=== PATIENT | female | born 2000 | race Caucasian/White ===

== ENCOUNTER 2022-05-29 16:09 | Emergency (ER) | payer OTHER ==
[2022-05-29 17:10] LABS: ALT (SGPT) 11 U/L (8-55); AST (SGOT) 15 U/L (5-30); Albumin 4.7 g/dL (3.5-5.0); Alkaline Phosphatase 58 U/L (40-100); Anion Gap 12 mmol/L (10-20); BUN (Urea Nitrogen) 11 mg/dL (8.4-21.0); Bilirubin, Total 0.5 mg/dL (0.2-1.2); Calc. Creatinine Clearance 0 mL/min (70-130); Calcium 9.6 mg/dL (7.8-10.44); Carbon Dioxide 25 mmol/L (22-29); Chloride 105 mmol/L (98-107); Estimated GFR 106; Globulin 2.6 g/dL (2.4-3.5); Glucose 115 mg/dL (70-105); Potassium 3.6 mmol/L (3.5-5.1); Protein, Total 7.3 g/dL (6.0-8.3); Sodium 138 mmol/L (136-145)
[2022-05-29] MEDS ORDERED: Acetaminophen 500 MG TAB ONE (17:30)
[2022-05-29 17:34] LABS: #Monocytes 0.6 10x3/uL (0.0-1.1); #Neutrophils 3.7 10x3/uL (1.5-8.4); %Basophils 0.4 % (0.0-2.0); %Eosinophils 0.2 % (0.0-6.0); %Lymphocytes 15.4 % (18.0-47.0); %Monocytes 11.9 % (0.0-10.0); %Neutrophils 71.7 % (40.0-75.0); Hemoglobin 13.5 g/dL (12.0-15.5); Mean Corpuscular HGB CONC 32.9 g/dL (32.0-36.0); Mean Corpuscular Hemoglobin 29.5 pg (27.0-33.0); Mean Corpuscular Volume 89.5 fl (81.6-98.3); Mean Platelet Volume 10.9 fl (7.4-10.4); Platelet Count 157 10x3/uL (150-450); RBC Distribution Width 12.8 % (11.5-14.5); Red Blood Cell (RBC) Count 4.58 10x6/uL (3.90-5.03); White Blood Cell (WBC) Count 5.2 10x3/uL (3.5-10.5)
[2022-05-29 18:11] LABS: Bilirubin Neg (Negative); Blood, Urine 150 (Negative); Clarity Clear (Clear); Glucose, Urine (Dipstick) Normal (Negative); Ketone, Urine Negative (Negative); Leukocyte Negative (Negative); Nitrite Negative (Negative); Protein, Urine (Dipstick) 15 mg/dl (Neg-Trace); Urobilinogen Normal mg/dL (Less than 2)
[2022-05-29 18:15] LABS: Pregnancy Test - Urine (BHCG) Negative (Negative); Pregu Control Background? CLEAR/WHITE (CLR/WHITE); Pregu Control Bar Appear? YES (CONTROL BAR)
[2022-05-29 18:30] LABS: Bacteria/HPF 2+ HPF (None Seen); Mucous/LPF 3+ LPF (<2+); WBC/HPF 0-3 HPF (0-3)
[2022-05-29 18:31] LABS: Squamous Epithelial 0-3 HPF (0-3)
== END 2022-05-29 19:35 | disposition home or self-care (01) ==
LOC: CSHERS 16:09
DX: M54.50 Low back pain, unspecified (principal); R51.9 Headache, unspecified
CPT/HCPCS: 36415; 80053; 81003; 81015; 81025; 85025; 87086; U0003; U0005

== ENCOUNTER 2022-07-15 14:22 | Emergency (ER) | payer OTHER ==
[2022-07-15 16:05] LABS: #Eosinphils 0.1 10x3/uL (0.0-0.5); #Monocytes 0.6 10x3/uL (0.0-1.1); #Neutrophils 8.9 10x3/uL (1.5-8.4); %Basophils 0.4 % (0.0-2.0); %Eosinophils 0.8 % (0.0-6.0); %Lymphocytes 12.1 % (18.0-47.0); %Monocytes 5.2 % (0.0-10.0); %Neutrophils 81.1 % (40.0-75.0); Hemoglobin 13.2 g/dL (12.0-15.5); Mean Corpuscular HGB CONC 32.6 g/dL (32.0-36.0); Mean Corpuscular Hemoglobin 29.9 pg (27.0-33.0); Mean Corpuscular Volume 91.8 fl (81.6-98.3); Mean Platelet Volume 10.8 fl (7.4-10.4); Platelet Count 201 10x3/uL (150-450); RBC Distribution Width 12.6 % (11.5-14.5); Red Blood Cell (RBC) Count 4.41 10x6/uL (3.90-5.03); White Blood Cell (WBC) Count 10.9 10x3/uL (3.5-10.5)
[2022-07-15] MEDS ORDERED: Iopamidol 300 61% 100 ML VIAL FS ONE (16:11)
[2022-07-15] MEDS ORDERED: Morphine 4 MG/ML VIAL ONE (16:15)
[2022-07-15] MEDS ORDERED: Ondansetron PF 4 MG/2 ML Vial ONE (16:16)
[2022-07-15 16:24] LABS: Anion Gap 12 mmol/L (10-20); BUN (Urea Nitrogen) 14 mg/dL (7.0-18.7); Calc. Creatinine Clearance 0 mL/min (70-130); Carbon Dioxide 24 mmol/L (22-29); Chloride 107 mmol/L (98-107); Sodium 139 mmol/L (136-145)
[2022-07-15 16:25] LABS: ALT (SGPT) 10 U/L (8-55); AST (SGOT) 12 U/L (5-34); Albumin 4.8 g/dL (3.5-5.0); Alkaline Phosphatase 57 U/L (40-100); Bilirubin, Total 0.6 mg/dL (0.2-1.2); Calcium 9.5 mg/dL (7.8-10.44); Estimated GFR 125; Globulin 2.6 g/dL (2.4-3.5); Glucose 87 mg/dL (70-105); Lipase 28 U/L (8-78); Protein, Total 7.4 g/dL (6.0-8.3)
[2022-07-15 16:46] LABS: Bilirubin Neg (Negative); Blood, Urine 25 (Negative); Clarity Clear (Clear); Glucose, Urine (Dipstick) Normal (Negative); Ketone, Urine Negative (Negative); Leukocyte Negative (Negative); Nitrite Negative (Negative); Protein, Urine (Dipstick) Negative (Neg-Trace); Urobilinogen Normal mg/dL (Less than 2)
[2022-07-15 16:49] LABS: Pregnancy Test - Urine (BHCG) Negative (Negative); Pregu Control Background? CLEAR/WHITE (CLR/WHITE); Pregu Control Bar Appear? YES (CONTROL BAR)
[2022-07-15 17:16] LABS: Bacteria/HPF Rare-Few HPF (None Seen); RBC/HPF 0-3 HPF (0-3); Squamous Epithelial 0-3 HPF (0-3); WBC/HPF 0-3 HPF (0-3)
== END 2022-07-15 18:50 | disposition home or self-care (01) ==
LOC: CSHERS 14:22
DX: R10.31 Right lower quadrant pain (principal); R10.32 Left lower quadrant pain; R10.12 Left upper quadrant pain
CPT/HCPCS: 36415; 74177; 80053; 81003; 81015; 81025; 83690; 85025; 96374; 96375; J2270; J2405; Q9967

== ENCOUNTER 2023-06-03 17:35 | Emergency (ER) | payer OTHER ==
[2023-06-03 18:11] LABS: Bilirubin Neg (Negative); Blood, Urine 10 (Negative); Clarity Clear (Clear); Glucose, Urine (Dipstick) Normal (Negative); Ketone, Urine Negative (Negative); Leukocyte Negative (Negative); Nitrite Negative (Negative); Protein, Urine (Dipstick) Negative (Neg-Trace); Specific Gravity, Urine 1.015 (1.005-1.030); Urobilinogen Normal mg/dL (Less than 2)
[2023-06-03 18:25] LABS: Bacteria/HPF Rare-Few HPF (None Seen); CAUTI Indications for Culture Pregnancy; RBC/HPF 0-3 HPF (0-3); Squamous Epithelial 0-3 HPF (0-3); Urine Culture Reflex Yes Yes; WBC/HPF 0-3 HPF (0-3)
[2023-06-03 18:26] LABS: #Eosinphils 0.1 10x3/uL (0.0-0.5); #Monocytes 0.5 10x3/uL (0.0-1.1); #Neutrophils 5.4 10x3/uL (1.5-8.4); %Basophils 0.5 % (0.0-2.0); %Eosinophils 1.2 % (0.0-6.0); %Lymphocytes 22.6 % (18.0-47.0); %Neutrophils 69.4 % (40.0-75.0); Mean Corpuscular HGB CONC 32.9 g/dL (32.0-36.0); Mean Corpuscular Hemoglobin 29.4 pg (27.0-33.0); Mean Corpuscular Volume 89.4 fl (81.6-98.3); Platelet Count 246 10x3/uL (150-450); RBC Distribution Width 13.1 % (11.5-14.5); Red Blood Cell (RBC) Count 4.42 10x6/uL (3.90-5.03); White Blood Cell (WBC) Count 7.8 10x3/uL (3.5-10.5)
[2023-06-03 18:40] LABS: ALT (SGPT) 14 U/L (8-55); AST (SGOT) 13 U/L (5-34); Albumin 4.8 g/dL (3.5-5.0); Alkaline Phosphatase 49 U/L (40-100); Anion Gap 13 mmol/L (10-20); BUN (Urea Nitrogen) 11 mg/dL (7.0-18.7); Bilirubin, Total 0.3 mg/dL (0.2-1.2); Calc. Creatinine Clearance 0 mL/min (70-130); Calcium 9.7 mg/dL (7.8-10.44); Carbon Dioxide 25 mmol/L (22-29); Chloride 104 mmol/L (98-107); Estimated GFR 125; Globulin 2.6 g/dL (2.4-3.5); Glucose 70 mg/dL (70-105); Potassium 4.1 mmol/L (3.5-5.1); Protein, Total 7.4 g/dL (6.0-8.3); Sodium 138 mmol/L (136-145)
== END 2023-06-03 21:16 | disposition home or self-care (01) ==
LOC: CSHERS 17:35
DX: O20.0 Threatened abortion (principal); Z3A.01 Less than 8 weeks gestation of pregnancy
CPT/HCPCS: 36415; 76856; 80053; 81001; 84702; 85025; 86900; 86901; 87086; 90384; 96372

== ENCOUNTER 2023-07-23 11:09 | Emergency (ER) | payer OTHER ==
[2023-07-23 13:25] LABS: #Eosinphils 0.1 10x3/uL (0.0-0.5); #Monocytes 0.3 10x3/uL (0.0-1.1); #Neutrophils 6.1 10x3/uL (1.5-8.4); %Basophils 0.3 % (0.0-2.0); %Eosinophils 0.9 % (0.0-6.0); %Monocytes 3.9 % (0.0-10.0); %Neutrophils 76.8 % (40.0-75.0); Hematocrit 37.7 % (34.9-44.5); Hemoglobin 12.6 g/dL (12.0-15.5); Mean Corpuscular HGB CONC 33.4 g/dL (32.0-36.0); Mean Corpuscular Hemoglobin 30.2 pg (27.0-33.0); Mean Corpuscular Volume 90.4 fl (81.6-98.3); Mean Platelet Volume 10.7 fl (7.4-10.4); Platelet Count 188 10x3/uL (150-450); RBC Distribution Width 13.1 % (11.5-14.5); Red Blood Cell (RBC) Count 4.17 10x6/uL (3.90-5.03); White Blood Cell (WBC) Count 7.9 10x3/uL (3.5-10.5)
[2023-07-23 13:38] LABS: Bilirubin Neg (Negative); Blood, Urine 10 (Negative); Clarity Cloudy (Clear); Glucose, Urine (Dipstick) Normal (Negative); Ketone, Urine Negative (Negative); Leukocyte 25 (Negative); Nitrite Negative (Negative); Protein, Urine (Dipstick) Negative (Neg-Trace); Specific Gravity, Urine 1.015 (1.005-1.030); Urobilinogen Normal mg/dL (Less than 2)
[2023-07-23 13:41] LABS: ALT (SGPT) 11 U/L (8-55); AST (SGOT) 12 U/L (5-34); Albumin 4.2 g/dL (3.5-5.0); Alkaline Phosphatase 42 U/L (40-110); Anion Gap 10 mmol/L (10-20); BUN (Urea Nitrogen) 9 mg/dL (7.0-18.7); Bilirubin, Total 0.4 mg/dL (0.2-1.2); Calc. Creatinine Clearance 0 mL/min (70-130); Calcium 9.1 mg/dL (7.8-10.44); Carbon Dioxide 26 mmol/L (22-29); Chloride 105 mmol/L (98-107); Estimated GFR 132; Globulin 2.5 g/dL (2.4-3.5); Glucose 105 mg/dL (70-105); Lipase 33 U/L (8-78); Protein, Total 6.7 g/dL (6.0-8.3); Sodium 137 mmol/L (136-145)
[2023-07-23 13:47] LABS: Bacteria/HPF None Seen HPF (None Seen); CAUTI Indications for Culture Pregnancy; RBC/HPF 0-3 HPF (0-3); Squamous Epithelial 0-3 HPF (0-3); WBC/HPF 0-3 HPF (0-3)
[2023-07-23 13:49] LABS: Urine Culture Reflex Yes Yes
== END 2023-07-23 16:15 | disposition home or self-care (01) ==
LOC: CSHERS 11:09
DX: O99.892 Other specified diseases and conditions complicating childbirth (principal); R55 Syncope and collapse; R51.9 Headache, unspecified; R11.0 Nausea; R10.9 Unspecified abdominal pain; O99.281 Endocrine, nutritional and metabolic diseases complicating pregnancy, first trimester; E86.0 Dehydration; Z3A.13 13 weeks gestation of pregnancy
CPT/HCPCS: 76856; 80053; 81001; 83690; 84702; 85025; 86900; 86901; 87086; 93005; 96360

== ENCOUNTER → 2023-09-20 | Day surgery (SDC) | payer OTHER ==
[~2023-09-20] MED LIST: Dexamethasone 4 mg/ml Vial ONE; Glycopyrrolate 0.2 MG/ML 5 ML SYRINGE ONE; HYDROcodone/Acetaminophen 7.5/325 mg Tablet ONE; Lidocaine 1% PF 5 ML VIAL ONE; Meperidine HCl/PF 25 MG/ML VIAL ONE; Methylergonovine 0.2 MG/ML VIAL ONE; Misoprostol 200 MCG TAB ONE; Ondansetron PF 4 MG/2 ML Vial ONE; PHENYLEPHRINE-NS 100 MCG/ML 10 ML SYRINGE ONE; PROPOFOL 20 ML ONE; Succinylcholine 200 MG/10 ml SYRINGE FS ONE; diphenhydrAMINE 50 MG/ML VIAL ONE; ePHEDrine Sulfate 50 MG/10 ML VIAL ONE; fentaNYL 50 mcg/mL 1 mL Vial ONE
[2023-09-20 09:11] LABS: BHCG - Serum POSITIVE (NEGATIVE); Pregs Control Background? CLEAR/WHITE (CLR/WHITE); Pregs Control Bar Appear? YES (CONTROL BAR)
[2023-09-20 09:16] LABS: ALT (SGPT) 16 U/L (8-55); AST (SGOT) 17 U/L (5-34); Albumin 4.7 g/dL (3.5-5.0); Alkaline Phosphatase 55 U/L (40-110); Anion Gap 13 mmol/L (10-20); BUN (Urea Nitrogen) 16 mg/dL (7.0-18.7); Bilirubin, Total 0.5 mg/dL (0.2-1.2); Calc. Creatinine Clearance 0 mL/min (70-130); Calcium 9.5 mg/dL (7.8-10.44); Carbon Dioxide 24 mmol/L (22-29); Chloride 106 mmol/L (98-107); Estimated GFR 112; Globulin 2.7 g/dL (2.4-3.5); Glucose 97 mg/dL (70-105); Potassium 3.7 mmol/L (3.5-5.1); Protein, Total 7.4 g/dL (6.0-8.3); Sodium 139 mmol/L (136-145)
[2023-09-20 09:23] LABS: #Basophils 0.1 10x3/uL (0.0-0.2); #Eosinphils 0.1 10x3/uL (0.0-0.5); #Monocytes 0.3 10x3/uL (0.0-1.1); %Basophils 0.6 % (0.0-2.0); %Eosinophils 0.7 % (0.0-6.0); %Lymphocytes 15.1 % (18.0-47.0); %Monocytes 3.5 % (0.0-10.0); %Neutrophils 79.6 % (40.0-75.0); Hematocrit 37.1 % (34.9-44.5); Hemoglobin 12.2 g/dL (12.0-15.5); Mean Corpuscular HGB CONC 32.9 g/dL (32.0-36.0); Mean Corpuscular Hemoglobin 30.6 pg (27.0-33.0); Mean Platelet Volume 10.7 fl (7.4-10.4); Platelet Count 217 10x3/uL (150-450); RBC Distribution Width 11.8 % (11.5-14.5); Red Blood Cell (RBC) Count 3.99 10x6/uL (3.90-5.03); White Blood Cell (WBC) Count 8.8 10x3/uL (3.5-10.5)
== END ==
LOC: CSHERS 08:19 → CSHSDC 13:02
PROVIDERS: ATTEND Obstetrics & Gynecology
PROC: 0UDB7ZZ Extraction of Endometrium, Via Natural or Artificial Opening (ICD-10-PCS; principal; 2023-09-20)
DX: O73.1 Retained portions of placenta and membranes, without hemorrhage (principal); Z88.0 Allergy status to penicillin
CPT/HCPCS: 36416; 76856; 80053; 84702; 84703; 85025; 86850; 86900; 86901; 88305; 90384; 96372; J1100; J1200; J2175; J2210; J2405; J2704; J3010

== ENCOUNTER 2024-01-21 19:22 | Emergency (ER) | payer OTHER ==
[2024-01-21] MEDS ORDERED: Dicyclomine 20 MG/2 ML VIAL ONE (19:53)
[2024-01-21] MEDS ORDERED: Ondansetron PF 4 MG/2 ML Vial ONE (19:53)
[2024-01-21 20:39] LABS: ALT (SGPT) 16 U/L (8-55); AST (SGOT) 19 U/L (5-34); Albumin 4.1 g/dL (3.5-5.0); Alkaline Phosphatase 48 U/L (40-110); Anion Gap 10 mmol/L (10-20); BUN (Urea Nitrogen) 5 mg/dL (7.0-18.7); Bilirubin, Total 0.2 mg/dL (0.2-1.2); Calc. Creatinine Clearance 0 mL/min (70-130); Calcium 8.8 mg/dL (7.8-10.44); Carbon Dioxide 23 mmol/L (22-29); Chloride 105 mmol/L (98-107); Estimated GFR 129; Globulin 2.5 g/dL (2.4-3.5); Glucose 83 mg/dL (70-105); Lipase 33 U/L (8-78); Potassium 3.5 mmol/L (3.5-5.1); Protein, Total 6.6 g/dL (6.0-8.3); Sodium 134 mmol/L (136-145)
[2024-01-21 20:40] LABS: #Eosinphils 0.1 10x3/uL (0.0-0.5); #Monocytes 0.3 10x3/uL (0.0-1.1); #Neutrophils 2.8 10x3/uL (1.5-8.4); %Basophils 0.2 % (0.0-2.0); %Eosinophils 1.2 % (0.0-6.0); %Lymphocytes 20.8 % (18.0-47.0); %Monocytes 7.8 % (0.0-10.0); %Neutrophils 69.8 % (40.0-75.0); Hematocrit 31.3 % (34.9-44.5); Hemoglobin 9.8 g/dL (12.0-15.5); Mean Corpuscular HGB CONC 31.3 g/dL (32.0-36.0); Mean Corpuscular Hemoglobin 24.9 pg (27.0-33.0); Mean Corpuscular Volume 79.6 fl (81.6-98.3); Mean Platelet Volume 10.9 fl (7.4-10.4); Platelet Count 178 10x3/uL (150-450); RBC Distribution Width 18.6 % (11.5-14.5); Red Blood Cell (RBC) Count 3.93 10x6/uL (3.90-5.03); White Blood Cell (WBC) Count 4.1 10x3/uL (3.5-10.5)
[2024-01-21 21:07] LABS: Bilirubin Neg (Negative); Blood, Urine 10 (Negative); Clarity Clear (Clear); Glucose, Urine (Dipstick) Normal (Negative); Ketone, Urine Negative (Negative); Leukocyte 25 (Negative); Nitrite Negative (Negative); Protein, Urine (Dipstick) Negative (Neg-Trace); Urobilinogen Normal mg/dL (Less than 2)
[2024-01-21 21:36] LABS: Bacteria/HPF 2+ HPF (None Seen); CAUTI Indications for Culture Pregnancy; RBC/HPF 0-3 HPF (0-3); Squamous Epithelial 0-3 HPF (0-3); WBC/HPF 0-3 HPF (0-3)
[2024-01-21 21:37] LABS: Urine Culture Reflex Yes Yes
[2024-01-21] MEDS ORDERED: Acetaminophen 325 MG TAB ONE (22:10)
== END 2024-01-21 23:30 | disposition home or self-care (01) ==
LOC: CSHERS 19:22
DX: O99.612 Diseases of the digestive system complicating pregnancy, second trimester (principal); A08.4 Viral intestinal infection, unspecified; O99.332 Smoking (tobacco) complicating pregnancy, second trimester; F17.290 Nicotine dependence, other tobacco product, uncomplicated; R11.2 Nausea with vomiting, unspecified; Z3A.16 16 weeks gestation of pregnancy
CPT/HCPCS: 80053; 81001; 83690; 85025; 87086; 96372; 96374; J2405

== ENCOUNTER 2024-05-13 16:01 | Day surgery (SDC) | payer OTHER ==
[2024-05-13] MEDS ORDERED: hydrALAZINE 20 MG/ML VIAL SLOW IVP PRN (17:22)
[2024-05-13 17:40] LABS: Bilirubin Neg (Negative); Blood, Urine Negative (Negative); Clarity Clear (Clear); Glucose, Urine (Dipstick) Normal (Negative); Ketone, Urine Negative (Negative); Leukocyte Negative (Negative); Nitrite Negative (Negative); Protein, Urine (Dipstick) Negative (Neg-Trace); Urobilinogen Normal mg/dL (Less than 2)
[2024-05-13 17:58] VITALS: BMI 26.7
== END 2024-05-13 19:20 | disposition home or self-care (01) ==
LOC: CSHLD/OP 16:01
PROVIDERS: ATTEND Family Medicine
DX: O99.891 Other specified diseases and conditions complicating pregnancy (principal); M54.50 Low back pain, unspecified; O99.413 Diseases of the circulatory system complicating pregnancy, third trimester; A18.01 Tuberculosis of spine; O99.343 Other mental disorders complicating pregnancy, third trimester; F41.9 Anxiety disorder, unspecified; Z88.0 Allergy status to penicillin; Z3A.31 31 weeks gestation of pregnancy; Z79.899 Other long term (current) drug therapy
CPT/HCPCS: 76815; 81003

== ENCOUNTER 2024-05-15 23:58 | Observation (INO) | payer OTHER ==
[2024-05-16] MEDS ORDERED: hydrALAZINE 20 MG/ML VIAL SLOW IVP PRN ×2 (00:05→02:28)
[2024-05-16 01:07] VITALS: BMI 26.7
[2024-05-16 01:38] LABS: Fetal Membranes Rupture RUPTURE DETECTED (No Rupture)
[2024-05-16] MEDS ORDERED: Promethazine HCl 25 MG/ML VIAL IM PRN (02:28)
[2024-05-16] MEDS ORDERED: Ondansetron PF 4 MG/2 ML Vial IVP PRN (02:28)
[2024-05-16 02:54] LABS: #Basophils 0.04 10x3/uL (0.0-0.2); #Eosinphils 0.09 10x3/uL (0.0-0.5); #Monocytes 0.61 10x3/uL (0.0-1.1); #Neutrophils 8.39 10x3/uL (1.5-8.4); %Basophils 0.4 % (0.0-2.0); %Eosinophils 0.8 % (0.0-6.0); %Lymphocytes 17.2 % (18.0-47.0); %Monocytes 5.5 % (0.0-10.0); %Neutrophils 75.3 % (40.0-75.0); Hematocrit 31.4 % (34.9-44.5); Hemoglobin 10.9 g/dL (12.0-15.5); Mean Corpuscular HGB CONC 34.7 g/dL (32.0-36.0); Mean Corpuscular Hemoglobin 30.6 pg (27.0-33.0); Mean Corpuscular Volume 88.2 fL (81.6-98.3); Mean Platelet Volume 10.9 fL (7.4-10.4); Platelet Count 177 10x3/uL (150-450); RBC Distribution Width 14.1 % (11.5-14.5); Red Blood Cell (RBC) Count 3.56 10x6/uL (3.90-5.03); White Blood Cell (WBC) Count 11.1 10x3/uL (3.5-10.5)
[2024-05-16] MEDS: CEFAZOLIN 2 GM in Sodium Chloride 0.9% 100 ML IVPB SCH (03:16)
[2024-05-16] MEDS: Azithromycin 1,000 MG in Sodium Chloride 0.9% 250 ML 250 ML IVPB SCH (03:18)
[2024-05-16 03:22] LABS: HBsAg Index 0.25 S/CO (0-0.99); Hep B Surf Ag - L&D Non-Reactive S/CO (NonReactive)
[2024-05-16 03:23] LABS: Syphilis Antibody Nonreactive (Nonreactive); Syphilis Antibody Index 0.09 S/CO (<1.00 Non-Reactive)
[2024-05-16] MEDS: Betamet Acet/Betamet Na Ph 30 MG/5 ML VIAL IM SCH (03:24)
[2024-05-16 10:38] LABS: Fetal Membranes Rupture No Membranes Rupture (No Rupture)
[2024-05-16] MEDS: Acetaminophen 500 MG TAB PO PRN (15:20)
[2024-05-16] MEDS: FLUoxetine HCl 20 MG CAP PO SCH (21:02)
[2024-05-17] MEDS: FLUOXETINE HCL 20 MG PO SCH (07:11)
[2024-05-17] MEDS ORDERED: Prenatal Vitamin 1 TAB PO SCH (09:00)
[2024-05-17] MEDS ORDERED: Ferrous Sulfate 325 MG TAB PO SCH (09:00)
[2024-05-18 14:22] LABS: Group B Streptococcus by PCR Not Detected (NotDetected)
== END 2024-05-17 09:15 | disposition home or self-care (01) ==
LOC: CSHLD/OP 23:58 → CSHLD 05-16 02:28
PROVIDERS: ADMIT Family Medicine; ATTEND Family Medicine
DX: O46.93 Antepartum hemorrhage, unspecified, third trimester (principal); O99.891 Other specified diseases and conditions complicating pregnancy; N89.8 Other specified noninflammatory disorders of vagina; O47.03 False labor before 37 completed weeks of gestation, third trimester; O99.333 Smoking (tobacco) complicating pregnancy, third trimester; F17.290 Nicotine dependence, other tobacco product, uncomplicated; O99.013 Anemia complicating pregnancy, third trimester; O43.113 Circumvallate placenta, third trimester; O99.342 Other mental disorders complicating pregnancy, second trimester; F32.A Depression, unspecified; Z3A.32 32 weeks gestation of pregnancy; Z88.0 Allergy status to penicillin; Z79.899 Other long term (current) drug therapy
CPT/HCPCS: 76819; 84112; 85025; 85460; 86780; 86850; 86870; 86900; 86901; 87340; 87480; 87510; 87653; 87660; 96372; 96374; 96375; 96376; 99285; G0378; G0379; J0456; J0702; J3490; J7050

== ENCOUNTER 2024-05-21 22:06 | Day surgery (SDC) | payer OTHER ==
[2024-05-21 22:41] VITALS: BMI 27.2
[2024-05-21] MEDS ORDERED: hydrALAZINE 20 MG/ML VIAL SLOW IVP PRN (23:06)
[2024-05-21 23:53] LABS: Bilirubin Neg (Negative); Blood, Urine Negative (Negative); Clarity Clear (Clear); Glucose, Urine (Dipstick) Normal (Negative); Ketone, Urine Negative (Negative); Leukocyte Negative (Negative); Nitrite Negative (Negative); Protein, Urine (Dipstick) Negative (Neg-Trace); Specific Gravity, Urine 1.015 (1.005-1.030); Urobilinogen Normal mg/dL (Less than 2); pH, Urine 6.5 (5.0-9.0)
[2024-05-21] MEDS: Acetaminophen 500 MG TAB PO SCH (23:54)
[2024-05-22 00:27] LABS: Bacteria/HPF Rare-Few HPF (None Seen); CAUTI Indications for Culture Pregnancy; RBC/HPF None Seen HPF (0-3); Squamous Epithelial 0-3 HPF (0-3); WBC/HPF None Seen HPF (0-3)
[2024-05-22 00:28] LABS: Urine Culture Reflex Yes Yes
== END 2024-05-22 01:13 | disposition home or self-care (01) ==
LOC: CSHLD/OP 22:06
PROVIDERS: ATTEND Family Medicine
DX: O46.93 Antepartum hemorrhage, unspecified, third trimester (principal); O99.013 Anemia complicating pregnancy, third trimester; G90.A Postural orthostatic tachycardia syndrome [POTS]; O99.43 Diseases of the circulatory system complicating the puerperium; O99.343 Other mental disorders complicating pregnancy, third trimester; F41.9 Anxiety disorder, unspecified; F32.9 Major depressive disorder, single episode, unspecified; O99.333 Smoking (tobacco) complicating pregnancy, third trimester; F17.290 Nicotine dependence, other tobacco product, uncomplicated; Z3A.32 32 weeks gestation of pregnancy; Z88.0 Allergy status to penicillin; Z90.49 Acquired absence of other specified parts of digestive tract; Z98.890 Other specified postprocedural states
CPT/HCPCS: 81001; 87086

== ENCOUNTER 2024-05-25 18:39 | Inpatient (IN) | payer OTHER ==
[2024-05-25 19:35] VITALS: BMI 27.3
[2024-05-25] MEDS ORDERED: Methylergonovine 0.2 MG/ML VIAL IM PRN (20:01)
[2024-05-25] MEDS ORDERED: Diphenoxylate HCl/Atropine Tablet PO PRN (20:01)
[2024-05-25] MEDS ORDERED: fentaNYL 50 mcg/mL 1 mL Vial SLOW IVP PRN (20:01)
[2024-05-25] MEDS ORDERED: Misoprostol 200 MCG TAB PR PRN (20:01)
[2024-05-25] MEDS ORDERED: Carboprost 250 MCG/ML AMP IM PRN (20:01)
[2024-05-25] MEDS ORDERED: Promethazine HCl 25 MG/ML VIAL IM PRN (20:01)
[2024-05-25] MEDS ORDERED: hydrALAZINE 20 MG/ML VIAL SLOW IVP PRN (20:01)
[2024-05-25] MEDS ORDERED: Lidocaine 1% (PF) 30 ML VIAL SC PRN (20:01)
[2024-05-25] MEDS ORDERED: Ondansetron PF 4 MG/2 ML Vial IVP PRN (20:01)
[2024-05-25] MEDS ORDERED: Tranexamic Acid 1,000 MG/10 ML VIAL IVP PRN (20:01)
[2024-05-25] MEDS ORDERED: Docusate 100 MG CAP PO PRN (20:01)
[2024-05-25 20:12] LABS: Fetal Membranes Rupture No Membranes Rupture (No Rupture)
[2024-05-25] MEDS ORDERED: Oxytocin 30 units/NS 500 ML 500 ML IV SCH (20:15)
[2024-05-25 21:34] LABS: Hematocrit 32.6 % (34.9-44.5); Hemoglobin 11.1 g/dL (12.0-15.5); Mean Corpuscular Hemoglobin 30.1 pg (27.0-33.0); Mean Corpuscular Volume 88.3 fL (81.6-98.3); Mean Platelet Volume 10.6 fL (7.4-10.4); Platelet Count 206 10x3/uL (150-450); RBC Distribution Width 13.7 % (11.5-14.5); Red Blood Cell (RBC) Count 3.69 10x6/uL (3.90-5.03); White Blood Cell (WBC) Count 13.2 10x3/uL (3.5-10.5)
[2024-05-25] MEDS: Acetaminophen 500 MG TAB PO PRN (21:49)
[2024-05-25 22:05] LABS: HBsAg Index 0.19 S/CO (0-0.99); Hep B Surf Ag - L&D Non-Reactive S/CO (NonReactive)
[2024-05-25 23:35] LABS: Amphetamine Not Detected (NotDetected); Barbiturates Screen Not Detected (NotDetected); Benzodiazepine Screen Not Detected (NotDetected); Cocaine Metabolite Screen Not Detected (NotDetected); Methadone Not Detected (NotDetected); Methamphetamine Not Detected (NotDetected); Opiate Screen Not Detected (NotDetected); Oxycodone Screen Not Detected (NotDetected); Phencyclidine (PCP) Not Detected (NotDetected); THC/Cannabinoid Screen Not Detected (NotDetected); Tricyclic Screen Not Detected (NotDetected)
[2024-05-25 23:41] LABS: Syphilis Antibody Nonreactive (Nonreactive); Syphilis Antibody Index 0.11 S/CO (<1.00 Non-Reactive)
[2024-05-26] MEDS: Zolpidem Tartrate 5 MG TAB PO PRN (00:55)
[2024-05-26] MEDS: Vancomycin 1 GM in Sodium Chloride 0.9% 250 ML 250 ML IVPB SCH (09:55)
[2024-05-26] MEDS: Cyclobenzaprine 10 MG TAB PO SCH (10:04)
[2024-05-26] MEDS: Lactated Ringer's 1,000 ML IV SCH (18:29)
[2024-05-26] MEDS: Cyclobenzaprine 10 MG TAB PO PRN (21:32)
[2024-05-26] MEDS: FLUoxetine HCl 20 MG CAP PO SCH (21:32)
[2024-05-27] MEDS: Acetaminophen 500 MG TAB PO PRN (00:21)
[2024-05-28 07:56] VITALS: BP 110/58; TEMP 98.1
== END 2024-05-28 10:00 | disposition home health service (06) | DRG 832 ==
LOC: CSHLD/OP 18:39 → CSHLD 19:44 → CSHANTE 05-26 12:22
PROVIDERS: ADMIT Family Medicine; ATTEND Family Medicine
PROC: 4A1HXCZ Monitoring of Products of Conception, Cardiac Rate, External Approach (ICD-10-PCS; principal; 2024-05-25)
DX: O99.013 Anemia complicating pregnancy, third trimester (principal); O47.03 False labor before 37 completed weeks of gestation, third trimester; Z88.8 Allergy status to other drugs, medicaments and biological substances
CPT/HCPCS: 59025; 80306; 84112; 85027; 86780; 86850; 86870; 86900; 86901; 86922; 87340; 99285; J3370; J7050

== ENCOUNTER 2024-05-28 14:55 | Inpatient (IN) | payer OTHER ==
[2024-05-28] MEDS ORDERED: Docusate 100 MG CAP PO PRN (16:11)
[2024-05-28] MEDS ORDERED: hydrALAZINE 20 MG/ML VIAL SLOW IVP PRN (16:11)
[2024-05-28] MEDS ORDERED: Lidocaine 1% (PF) 30 ML VIAL SC PRN (16:11)
[2024-05-28] MEDS ORDERED: Ibuprofen 800 MG TAB PO PRN (16:11)
[2024-05-28] MEDS ORDERED: Ondansetron PF 4 MG/2 ML Vial IVP PRN (16:11)
[2024-05-28] MEDS ORDERED: Methylergonovine 0.2 MG/ML VIAL IM PRN (16:11)
[2024-05-28] MEDS ORDERED: Promethazine HCl 25 MG/ML VIAL IM PRN (16:11)
[2024-05-28] MEDS ORDERED: Carboprost 250 MCG/ML AMP IM PRN (16:11)
[2024-05-28] MEDS ORDERED: HYDROcodone/Acetaminophen 5/325 mg Tablet PO PRN ×2 (16:11)
[2024-05-28] MEDS ORDERED: Misoprostol 200 MCG TAB PR PRN (16:11)
[2024-05-28 16:45] LABS: Fetal Membranes Rupture RUPTURE DETECTED (No Rupture)
[2024-05-28 16:49] VITALS: BMI 27.3
[2024-05-28] MEDS: Lactated Ringer's 1,000 ML IV SCH ×2 (17:21→21:41)
[2024-05-28] MEDS: CEFAZOLIN 1 GM in Sodium Chloride 0.9% 100 ML IVPB SCH (17:41)
[2024-05-28 18:03] LABS: Hematocrit 31.4 % (34.9-44.5); Hemoglobin 10.5 g/dL (12.0-15.5); Mean Corpuscular HGB CONC 33.4 g/dL (32.0-36.0); Mean Corpuscular Hemoglobin 30.2 pg (27.0-33.0); Mean Corpuscular Volume 90.2 fL (81.6-98.3); Mean Platelet Volume 10.6 fL (7.4-10.4); Platelet Count 207 10x3/uL (150-450); Red Blood Cell (RBC) Count 3.48 10x6/uL (3.90-5.03)
[2024-05-28] MEDS: Azithromycin 500 MG in Sodium Chloride 0.9% 250 ML 250 ML IVPB SCH (18:17)
[2024-05-28 18:27] LABS: Syphilis Antibody Nonreactive (Nonreactive); Syphilis Antibody Index 0.07 S/CO (<1.00 Non-Reactive)
[2024-05-28 18:28] LABS: HBsAg Index 0.19 S/CO (0-0.99); Hep B Surf Ag - L&D Non-Reactive S/CO (NonReactive)
[2024-05-28] MEDS: FLUoxetine HCl 20 MG CAP PO SCH (22:19)
[2024-05-29] MEDS: Prenatal Vitamin 1 TAB PO SCH (09:14)
[2024-05-29] MEDS: Ferrous Sulfate 325 MG TAB PO SCH (09:15)
[2024-05-29] MEDS: FLUoxetine HCl 20 MG CAP PO SCH (21:24)
[2024-05-29] MEDS: Zolpidem Tartrate 5 MG TAB PO PRN (23:46)
[2024-05-30] MEDS ORDERED: Lidocaine 1% (PF) 30 ML VIAL SC PRN (02:08)
[2024-05-30] MEDS ORDERED: Oxytocin 30 units/NS 500 ML 500 ML IV SCH (02:15)
[2024-05-31] MEDS: Oxytocin 30 units/NS 500 ML 500 ML IV SCH ×2 (00:47→10:46)
[2024-05-31] MEDS: Acetaminophen 500 MG TAB PO PRN (01:00)
[2024-05-31] MEDS: fentaNYL 50 mcg/mL 1 mL Vial SLOW IVP PRN (07:03)
[2024-05-31] MEDS: Misoprostol 100 MCG TAB VAG SCH (07:30)
[2024-05-31] MEDS ORDERED: diphenhydrAMINE 50 MG/ML VIAL IVP PRN (07:45)
[2024-05-31] MEDS ORDERED: Moisturizing Cream (Eucerin) 113 GM JAR TOP PRN (07:45)
[2024-05-31] MEDS ORDERED: Naloxone HCl 0.4 mg/ml Vial IVP PRN ×2 (07:45)
[2024-05-31] MEDS ORDERED: Lactated Ringer's 500 ML IV PRN (07:45)
[2024-05-31] MEDS ORDERED: ePHEDrine Sulfate 50 MG/10 ML VIAL SLOW IVP PRN (07:45)
[2024-05-31] MEDS ORDERED: Promethazine HCl 25 MG/ML VIAL IM PRN (07:45)
[2024-05-31] MEDS ORDERED: Communication Order-Pharmacy FS SCH (07:45)
[2024-05-31] MEDS ORDERED: Acetaminophen 325 MG TAB PO PRN (07:45)
[2024-05-31] MEDS: fentaNYL 2 mcg/Ropivacaine 0.2% Epidural 100 ML CADD EPIDURAL SCH (08:23)
[2024-05-31] MEDS: fentaNYL/Ropivacaine Epidural 100 ML ONE (08:24)
[2024-05-31] MEDS: Ondansetron PF 4 MG/2 ML Vial IVP PRN (09:23)
[2024-05-31] MEDS ORDERED: Methylergonovine 0.2 MG/ML VIAL IM PRN (10:18)
[2024-05-31] MEDS ORDERED: hydrALAZINE 20 MG/ML VIAL SLOW IVP PRN (10:18)
[2024-05-31] MEDS ORDERED: Misoprostol 200 MCG TAB VAG PRN (10:18)
[2024-05-31] MEDS ORDERED: Milk Of Magnesia 30 ML UDCUP PO PRN (10:18)
[2024-05-31] MEDS ORDERED: Bisacodyl 10 MG SUPP PR PRN (10:18)
[2024-05-31] MEDS ORDERED: Oxytocin 30 units/NS 500 ML 500 ML IV SCH (10:30)
[2024-05-31] MEDS: Boostrix 0.5 ML (Tdap) VIAL (>/=7 yrs of age) IM ONE (13:03)
[2024-05-31] MEDS: Phytonadione Neonatal 1 MG/0.5 ML AMP ONE (13:04)
[2024-05-31] MEDS: Erythromycin Base 0.5% Oint 1 GM TUBE ONE (13:04)
[2024-05-31] MEDS: Ferrous Sulfate 325 MG TAB PO SCH (13:05)
[2024-05-31] MEDS: Ibuprofen 800 MG TAB PO SCH (14:11)
[2024-05-31] MEDS: Benzocaine-Menthol 82.5 ML CAN TOP PRN (21:07)
[2024-05-31] MEDS: Docusate 100 MG CAP PO SCH (21:08)
[2024-06-01 03:17] LABS: #Basophils 0.05 10x3/uL (0.0-0.2); #Eosinphils 0.09 10x3/uL (0.0-0.5); #Monocytes 0.84 10x3/uL (0.0-1.1); #Neutrophils 10.07 10x3/uL (1.5-8.4); %Basophils 0.4 % (0.0-2.0); %Eosinophils 0.7 % (0.0-6.0); %Lymphocytes 14.5 % (18.0-47.0); %Monocytes 6.4 % (0.0-10.0); %Neutrophils 77.1 % (40.0-75.0); Hematocrit 30.8 % (34.9-44.5); Hemoglobin 10.6 g/dL (12.0-15.5); Mean Corpuscular HGB CONC 34.4 g/dL (32.0-36.0); Mean Corpuscular Hemoglobin 30.9 pg (27.0-33.0); Mean Corpuscular Volume 89.8 fL (81.6-98.3); Mean Platelet Volume 10.6 fL (7.4-10.4); Platelet Count 174 10x3/uL (150-450); RBC Distribution Width 13.9 % (11.5-14.5); Red Blood Cell (RBC) Count 3.43 10x6/uL (3.90-5.03); White Blood Cell (WBC) Count 13.1 10x3/uL (3.5-10.5)
[2024-06-01] MEDS: HYDROcodone/Acetaminophen 5/325 mg Tablet PO PRN (08:51)
[2024-06-02] MEDS ORDERED: Bupivacaine 0.25% HCL 30 ML VIAL ONE (07:00)
[2024-06-02 07:48] VITALS: BP 101/50; TEMP 98.1
== END 2024-06-02 17:10 | disposition home or self-care (01) | DRG 806 ==
LOC: CSHLD/OP 14:55 → CSHLD 17:52 → CSHPP 05-31 13:01
PROVIDERS: ADMIT Family Medicine; ATTEND Family Medicine
PROC: 10907ZC Drainage of Amniotic Fluid, Therapeutic from Products of Conception, Via Natural or Artificial Opening (ICD-10-PCS; 2024-05-28)
PROC: 10E0XZZ Delivery of Products of Conception, External Approach (ICD-10-PCS; principal; 2024-05-31)
PROC: 0UQMXZZ Repair Vulva, External Approach (ICD-10-PCS; 2024-05-31)
PROC: 3E0334Z Introduction of Serum, Toxoid and Vaccine into Peripheral Vein, Percutaneous Approach (ICD-10-PCS; 2024-05-31)
PROC: 3E033XZ Introduction of Vasopressor into Peripheral Vein, Percutaneous Approach (ICD-10-PCS; 2024-05-31)
DX: O42.02 Full-term premature rupture of membranes, onset of labor within 24 hours of rupture (principal); O60.10X0 Preterm labor with preterm delivery, unspecified trimester, not applicable or unspecified; Z37.0 Single live birth; O99.02 Anemia complicating childbirth; Z90.49 Acquired absence of other specified parts of digestive tract; O70.0 First degree perineal laceration during delivery; O43.113 Circumvallate placenta, third trimester; Z3A.34 34 weeks gestation of pregnancy; F32.9 Major depressive disorder, single episode, unspecified; O26.893 Other specified pregnancy related conditions, third trimester; Z67.41 Type O blood, Rh negative
CPT/HCPCS: 36415; 51702; 84112; 85025; 85027; 85461; 86780; 86850; 86870; 86900; 86901; 87340; 88307; 90384; 96372; 99285; J0456; J0665; J0690; J2405; J2590; J3010; J3490; J7050; J7120

== ENCOUNTER 2024-08-25 21:13 | Emergency (ER) | payer OTHER | END 2024-08-26 01:10 | disposition home or self-care (01) | LOC: CSHERS 21:13 | DX: J06.9 Acute upper respiratory infection, unspecified (principal); F17.290 Nicotine dependence, other tobacco product, uncomplicated | CPT/HCPCS: 87428; 99283 ==